=== PATIENT | male | born 2000 | race Caucasian/White ===

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

== ENCOUNTER 2021-10-08 21:30 | Emergency (ER) | payer OTHER ==
--- OUTSIDE RECORDS SUMMARY | 2021-10-08 21:33 | XMS REPORT | Continuity of Care Document ---
:2000 Author Organization [facility] t Address [address] [place] [address] Care Team Providers Name Role Phone Lillian OLVERA Primary Care Physician Unavailable Uday CRESPO R Attending Clinician DAISY RIVERO Attending Clinician Unavailable Louie TIAN Attending Clinician Gerry MARTIN Attending Clinician Unavailable Visit, Nurse Attending Clinician Unavailable Bryson JUDGE C Attending Clinician ANU Attending Clinician Unavailable LORETO CENTENO Admitting Clinician Unavailable Payers Payer Name Policy Type Policy Number Effective Date Expiration Date [facility] MEDICAID STAR [id number] 2019 00:00:00 Problems Condition Condition Condition Status Onset Resolution Last Treating Co mments Source Name Details Category Date Date Treatment Clinician Date Gonorrhea Gonorrhea Disease Active Uni vers 5[facility]05 ity of 00:00: [address] Chlamydia Chlamydia Disease Active Uni vers 5-05 ity of 00:00: [address] STD (male) STD (male) Disease Active U nivers 4-05 ity of 00:00: [address] Allergies, Adverse Reactions, Alerts Allergy Allergy Status Severity Reaction(s) Onset Inactive Treating Comm ents Source Name Type Date Date Clinician NO KNOWN Drug Active Univers ALLERGIE Class ity of S [place] [facility] Social History Social Habit Start Date Stop Date Quantity Comments Source Exposure to Not sure [facility] SARS-CoV-2 (event) Alcohol intake 2020-09-29 2020-09-29 Ex-drinker [facility] 00:00:00 00:00:00 (finding) [facility] Tobacco use and 2020-08-29 2020-08-29 Never used Universit y of exposure 00:00:00 00:00:00 [facility] Sex Assigned At [birth year] [facility] 00:00:00 00:00:00 Smoking Status Start Date Stop Date Source Unknown if ever smoked [facility] Never smoker [facility] Medications Ordered Filled Start Stop Current Ordering Indication Dosage Frequency Signature Comments Components Source Medication Medication Date Date Medication? Clinician (SIG) Name Name cefTRIAXone 2020- No Gonorrhea 250mg Univers (ROCEPHIN) 09-29 ity of injection 15:30: 03:29 [place] 250 mg 00 :00 [facility] cefTRIAXone 2020- No Gonorrhea 250mg Univers (ROCEPHIN) 09-29 ity of injection 15:30: 03:29 [place] 250 mg 00 :00 [facility] cefTRIAXone 2020- No Gonorrhea 500mg Univers (ROCEPHIN) 09-29 ity of injection 05:00: 14:30 [place] 500 mg 00 :00 [facility] cefTRIAXone 2020- No [id number] 500mg 500 mg, Univers (ROCEPHIN) 09-29 Intramuscu it y of injection 05:00: 14:30 [place] 500 [place] 00 :00 1 dose, Medical Daja 09/29/20 Branch at 0000, VALENTE
Re ason for Anti-Infec tive: Documented Infection< br>Documen becka Infection Site: Other
O ther site: genitourin juan c
Duration of Therapy: Other (see Comments) No known No Univers medications 09-27 ity of 08:43: [address] Vital Signs Vital Name Observation Time Observation Value Comments Source Systolic blood 2020-09-29 13:55:00 139 mm[Hg] Univer sity of pressure [facility] Diastolic blood 2020-09-29 13:55:00 89 mm[Hg] Unive rsity of [facility] Heart rate 2020-09-29 13:55:00 85 /min [facility] Body temperature 2020-09-29 13:55:00 36.78 [facility] Respiratory rate 2020-09-29 13:55:00 16 /min [facility] Body height 2020-09-29 13:55:00 190.5 cm Universi ty [facility] Body weight 2020-09-29 13:55:00 64.553 kg Universi [facility] BMI 2020-09-29 13:55:00 17.79 kg/m2 [facility] Procedures This patient has no known procedures. Plan of Care Planned Activity Planned Date Details Comments Source Future Scheduled 2021-01-25 INFLUENZA VACCINE [facility] [place] Test 00:00:00 (Season Ended) [code = Medic al Branch INFLUENZA VACCINE (Season Ended)] Future Scheduled 2019-11-19 Hepatitis C screening [facility] [place] Test 00:00:00 (procedure) [code = Medical Branch [id number]] Future Scheduled 2017 MENINGOCOCCAL VACCINE [facility] [place] Test 00:00:00 (1 - 2-dose series) Medical Branch [code = MENINGOCOCCAL VACCINE (1 - 2-dose series)] Future Scheduled 2017 SARS-CoV-2 (COVID-19) [facility] [place] Test 00:00:00 Vaccine (1) [code = Medical Branch SARS-CoV-2 (COVID-19) Vaccine (1)] Future Scheduled 2013 Depression screening [facility] [place] Test 00:00:00 (procedure) [code = Medical Branch [id number]] Future Scheduled 2013 Well child visit [facility] [place] Test 00:00:00 (procedure) [code = Medical Branch [id number]] Future Scheduled 2012 HPV VACCINES (1 - Male [facility] [place] Test 00:00:00 2-dose series) [code = Medic al Branch HPV VACCINES (1 - Male 2-dose series)] Future Scheduled 2011-11-19 MENINGOCOCCAL B [facility] [place] Test 00:00:00 VACCINES (1 of 2 - Medical B ranch Risk Bexsero 2-dose series) [code = MENINGOCOCCAL B VACCINES (1 of 2 - Risk Bexsero 2-dose series)] Future Scheduled 2008 DTaP,Tdap,and Td [facility] [place] Test 00:00:00 Vaccines (1 - Tdap) Medical Branch [code = DTaP,Tdap,and Td Vaccines (1 - Tdap)] Future Scheduled 2002 HEPATITIS A VACCINES [facility] [place] Test 00:00:00 (1 of 2 - 2-dose [facility] series) [code = HEPATITIS A VACCINES (1 of 2 - 2-dose series)] Future Scheduled 2002 MMR VACCINES (1 of 2 - [facility] [place] Test 00:00:00 Standard series) [code Medic al Branch = MMR VACCINES (1 of 2 - Standard series)] Future Scheduled 2002 VARICELLA VACCINES (1 [facility] [place] Test 00:00:00 of 2 - 2-dose [facility] Branch childhood series) [code = VARICELLA VACCINES (1 of 2 - 2-dose childhood series)] Future Scheduled 2001 HEPATITIS B VACCINES [facility] [place] Test 00:00:00 (1 of 3 - 3-dose [facility] primary series) [code = HEPATITIS B VACCINES (1 of 3 - 3-dose primary series)] Encounters Start End Encounter Admission Attending Care Care Encounter Source Date/Time Date/Time Type Type Clinicians Facility Department ID 2020-10-17 Outpatient [facility] [id number] [place] 14:25:16 Health 2020-10-17 Outpatient [facility] [id number] [place] 14:23:46 Health 2019-01-31 Inpatient [facility] JESSICA [id number] [facility] H 14:48:00 2021-06-21 2021-06-21 Outpatient [facility] [id number] Univers 08:30:00 08:30:00 [id number] ity of [place] [facility] 2021-06-19 2021-06-19 Telephone DEVYN Frye [id number] Univers 00:00:00 00:00:00 Maximino Sebastian [employer] [id number] ity [facility] [id number] Shawn as MATERNAL [id number] Med ical & CHILD [address] [place] [address] 2020-10-17 2020-10-18 Emergency E LAGISETTY, [facility] [id number] [facility] 15:00:00 01:21:00 MONE 2020-10-17 2020-10-17 Office JESUS Palma 6400 [id number] [place] 13:58:59 14:28:[address] [id number] Health [id number] 2020-10-11 2020-10-11 Telephone Leny Garrett UTP [id number] [place] 00:00:00 00:00:00 Leny Garrett TRAUMA [id number] Health CLINIC [id number] 2020-08-29 2020-08-29 Office JOSE C Massey [id number] 13:00:56 14:10:39 Visit Katie Minor [employer] [id number] [facility] [id number] MATERNAL [id number] & CHILD 107 [facility] 2020-02-05 2020-02-07 Outpatient IAIN BRENNAN MED [id number] [facility] 20:25:00 13:00:00 DREW 2019-02-24 2019-02-24 Emergency E [facility] [id number] [facility] 21:16:00 21:16:00 2019-02-20 2019-02-20 Outpatient E [facility] [id number] [facility] 11:17:00 11:17:00 2019-01-31 2019-01-31 Outpatient [facility] JESSICA [id number] [facility] 14:48:00 14:48:00 Results This patient has no known results.
[2021-10-08] MEDS ORDERED: TETANUS & DIPHTHERIA TOX,ADULT 0.5 ML VIAL ONE (22:36)
[2021-10-08] MEDS ORDERED: CEFAZOLIN SODIUM 1 GM/VIAL ONE (22:36)
[2021-10-08] MEDS ORDERED: ACETAMINOPHEN 500 MG TAB ONE (22:36)
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
[2021-10-09 01:03] VITALS: TEMP 98.6; O2SAT 100
[2021-10-09 01:05] VITALS: BP 118/76
--- NOTE | 2021-10-09 14:06 | RAD REPORT ---
EXAM DESCRIPTION: RAD - Ankle Left 3 View - 10/08/2021 11:14 pm CLINICAL HISTORY: 20 years Male, injury COMPARISON: None. FINDINGS/IMPRESSION: No fracture or dislocation. Bone mineralization is normal. Joint spaces are preserved. Posterior ankle laceration and associated swelling. No joint effusion. Electronically signed by: Brian Ewing DO 10/08/2021 11:34 PM CDT Due to temporary technical issues with the PACS/Fluency reporting system, reports are being signed by the in house radiologist without review as a courtesy to ensure prompt reporting. The interpreting r adiologist is fully responsible for the content of the report.
--- NOTE | 2021-10-09 14:45 | RAD REPORT ---
EXAM DESCRIPTION: RAD - Foot Left 3 View - 10/08/2021 11:14 pm CLINICAL HISTORY: 20 years Male, injury COMPARISON: None. FINDINGS/IMPRESSION: No fracture or dislocation. Bone mineralization is normal. Joint spaces are preserved. Posterior ankle laceration and associated swelling. No joint effusion. Electronically signed by: Brian Ewing DO 10/08/2021 11:34 PM CDT Due to temporary technical issues with the PACS/Fluency reporting system, reports are being signed by the in house radiologist without review as a courtesy to ensure prompt reporting. The interpreting r adiologist is fully responsible for the content of the report.
== END 2021-10-09 00:57 | disposition home or self-care (01) ==
LOC: ER 21:30
DX: S91.012A Laceration without foreign body, left ankle, initial encounter (principal); V19.9XXA Pedal cyclist (driver) (passenger) injured in unspecified traffic accident, initial encounter; Y93.89 Activity, other specified; Y92.9 Unspecified place or not applicable; Z23 Encounter for immunization
CPT/HCPCS: 73630; 73610; J0690; 90714; 96372; 99283

== ENCOUNTER 2021-10-30 21:24 | Emergency (ER) | payer OTHER ==
--- OUTSIDE RECORDS SUMMARY | 2021-10-30 21:27 | XMS REPORT | Continuity of Care Document ---
:2000 Author Organization [facility] t Address [address] [place] [address] Care Team Providers Name Role Phone Lillian OLVERA Primary Care Physician Unavailable Uday CRESPO R Attending Clinician DAISY RIVERO Attending Clinician Unavailable Louie TIAN Attending Clinician Gerry MARTIN Attending Clinician Unavailable Visit, Nurse Attending Clinician Unavailable Iván Blackwell Attending Clinician ANU Attending Clinician Unavailable LORETO CENTENO Admitting Clinician Unavailable Payers Payer Name Policy Type Policy Number Effective Date Expiration Date [facility] MEDICAID STAR [id number] 2019 00:00:00 Problems Condition Condition Condition Status Onset Resolution Last Treating Co mments Source Name Details Category Date Date Treatment Clinician Date Gonorrhea Gonorrhea Disease Active Uni vers 5[facility]05 ity of 00:00: [address] Chlamydia Chlamydia Disease Active Uni vers 5[facility]05 ity of 00:00: [address] STD (male) STD (male) Disease Active U nivers 4-05 ity of 00:00: [address] Allergies, Adverse Reactions, Alerts Allergy Allergy Status Severity Reaction(s) Onset Inactive Treating Comm ents Source Name Type Date Date Clinician NO KNOWN Drug Active Univers ALLERGIE Class ity of [facility] Social History Social Habit Start Date Stop Date Quantity Comments Source Exposure to Not sure [facility] SARS-CoV-2 (event) Alcohol intake 2020-09-29 2020-09-29 Ex-drinker [facility] 00:00:00 00:00:00 (finding) [facility] Tobacco use and 2020-08-29 2020-08-29 Never used Universit y of exposure 00:00:00 00:00:00 [facility] Sex Assigned At [birth year] [facility] 00:00:00 00:00:00 Smoking Status Start Date Stop Date Source Unknown if ever smoked [facility] Never smoker [facility] Medications Ordered Filled Start Stop Current Ordering Indication Dosage Frequency Signature Comments Components Source Medication Medication Date Date Medication? Clinician (SIG) Name Name cefTRIAXone 2020- No Gonorrhea 250mg Univers (ROCEPHIN) 09-29 ity of injection 15:30: 03:29 [place] 250 mg 00 :[address] [facility] cefTRIAXone 2020- No Gonorrhea 250mg Univers (ROCEPHIN) 09-29 ity of injection 15:30: 03:29 [place] 250 mg 00 :[address] [facility] cefTRIAXone 2020- No Gonorrhea 500mg Univers (ROCEPHIN) 09-29 ity of injection 05:00: 14:30 [place] 500 mg 00 :[address] [facility] cefTRIAXone 2020- No [id number] 500mg 500 mg, Univers (ROCEPHIN) 09-29 Intramuscu it y of injection 05:00: 14:30 [place], [place] 500 [place] 00 :00 1 dose, Medical Daja 09/29/20 Branch at 0000, VALENTE
Re ason for Anti-Infec tive: Documented Infection< br>Documen becka Infection Site: Other
O ther site: genitourin juan c
Duration of Therapy: Other (see Comments) No known No Univers medications 09-27 ity of 08:43: [address] Vital Signs Vital Name Observation Time Observation Value Comments Source Systolic blood 2020-09-29 13:55:00 139 mm[Hg] Univer sity of pressure [facility] Diastolic blood 2020-09-29 13:55:00 89 mm[Hg] Unive rsity of pressure [facility] Heart rate 2020-09-29 13:55:00 85 /min Universi [facility] Body temperature 2020-09-29 13:55:00 36.78 [facility] rate 2020-09-29 13:55:00 16 /min [facility] Body height 2020-09-29 13:55:00 190.5 cm Universi [facility] Body weight 2020-09-29 13:55:00 [facility] BMI 2020-09-29 13:55:00 17.79 kg/m2 [facility] Procedures This patient has no known procedures. Plan of Care Planned Activity Planned Date Details Comments Source Future Scheduled 2021-01-25 INFLUENZA VACCINE [facility] [place] [facility] 00:00:00 (Season Ended) [code = Medic al Branch INFLUENZA VACCINE (Season Ended)] Future Scheduled 2019-11-19 Hepatitis C screening [facility] [place] Test 00:00:00 (procedure) [code = Medical Branch [id number]] Future Scheduled 2017 MENINGOCOCCAL VACCINE [facility] [place] Test 00:00:00 (1 - 2-dose series) Medical Branch [code = MENINGOCOCCAL VACCINE (1 - 2-dose series)] Future Scheduled 2017 SARS-CoV-2 (COVID-19) [facility] [place] [facility] 00:00:00 Vaccine (1) [code = Medical Branch SARS-CoV-2 (COVID-19) Vaccine (1)] Future Scheduled 2013 Depression screening [facility] [place] Test 00:00:00 (procedure) [code = Medical Branch [id number]] Future Scheduled 2013 Well child visit [facility] [place] Test 00:00:00 (procedure) [code = Medical Branch [id number]] Future Scheduled 2012 HPV VACCINES (1 - Male [facility] [place] Test 00:00:00 2-dose series) [code = Medic al Branch HPV VACCINES (1 - Male 2-dose series)] Future Scheduled 2011-11-19 MENINGOCOCCAL B [facility] [place] Test 00:00:00 VACCINES (1 of 2 - Medical B ranch Risk Bexsero 2-dose series) [code = MENINGOCOCCAL B VACCINES (1 of 2 - Risk Bexsero 2-dose series)] Future Scheduled 2008 DTaP,Tdap,and Td [facility] [place] Test 00:00:00 Vaccines (1 - Tdap) Medical Branch [code = DTaP,Tdap,and Td Vaccines (1 - Tdap)] Future Scheduled 2002 HEPATITIS A VACCINES [facility] [place] Test 00:00:00 (1 of 2 - 2-dose Medical [facility] series) [code = HEPATITIS A VACCINES (1 of 2 - 2-dose series)] Future Scheduled 2002 MMR VACCINES (1 of 2 - [facility] [place] Test 00:00:00 Standard series) [code Medic al Branch = MMR VACCINES (1 of 2 - Standard series)] Future Scheduled 2002 VARICELLA VACCINES (1 [facility] [place] Test 00:00:00 of 2 - 2-dose Medical Branch childhood series) [code = VARICELLA VACCINES (1 of 2 - 2-dose childhood series)] Future Scheduled 2001 HEPATITIS B VACCINES [facility] [place] Test 00:00:00 (1 of 3 - 3-dose Medical [facility] primary series) [code = HEPATITIS B VACCINES (1 of 3 - 3-dose primary series)] Encounters Start End Encounter Admission Attending Care Care Encounter Source Date/Time Date/Time Type Type Clinicians Facility Department ID 2020-10-17 Outpatient [facility] [id number] [place] 14:25:16 Health 2020-10-17 Outpatient [facility] [id number] [place] 14:23:46 Health 2019-01-31 Inpatient [facility] [id number] [facility] H 14:48:00 2021-06-21 2021-06-21 Outpatient [facility] [id number] Univers 08:30:00 08:30:00 [id number] ity of [facility] 2021-06-19 2021-06-19 Telephone DEVYN Frye [id number] [facility] 00:00:00 00:00:00 Maximino Sebastian ADMINISTRATION DEAN [id number] ity [facility] [id number] Shawn as MATERNAL [id number] Med ical & CHILD [address] [place] [address] 2020-10-17 2020-10-18 Emergency E MAT, [facility] [id number] [facility] 15:00:00 01:21:00 MONE 2020-10-17 2020-10-17 Office JESUS Palma 6400 [id number] [place] 13:58:59 14:28:[address] [id number] [facility] [id number] 2020-10-11 2020-10-11 Telephone Leny Garrett [facility] [id number] [place] 00:00:00 00:00:00 Leny Garrett TRAUMA [id number] Health CLINIC [id number] 2020-08-29 2020-08-29 Office Bryson [facility] [id number] 13:00:56 14:10:39 Visit Katie Minor ADMINISTRATION DEAN [id number] [facility] [id number] MATERNAL [id number] & CHILD 107 [facility] 2020-02-05 2020-02-07 Outpatient IAIN BRENNAN MED [id number] [facility] 20:25:00 13:00:00 DREW 2019-02-24 2019-02-24 Emergency E [facility] [id number] [facility] 21:16:00 21:16:00 2019-02-20 2019-02-20 Outpatient E [facility] [id number] [facility] 11:17:00 11:17:00 2019-01-31 2019-01-31 Outpatient [facility] JESSICA [id number] [facility] 14:48:00 14:48:00 Results This patient has no known results.
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
[2021-10-30 23:28] VITALS: BP 124/76; TEMP 98.1; O2SAT 100
== END 2021-10-30 22:26 | disposition left against medical advice (07) ==
LOC: ER 21:24
DX: Z53.21 Procedure and treatment not carried out due to patient leaving prior to being seen by health care provider (principal)
CPT/HCPCS: 99282

== ENCOUNTER → 2023-06-21 | Emergency (ER) | payer OTHER, SELFPAY ==
[~2023-06-21] MED LIST: METHADONE HCL 10 MG TAB PO ONE; NA CHLORIDE 0.9% 1,000 ML ONE; ONDANSETRON 4 MG/2 ML VIAL ONE; PROMETHAZINE 25 MG TABLET ONE; cloNIDine HCL 0.1 MG TAB ONE
[2023-06-21 16:53] LABS: Hematocrit 35.2 % (39.6-49.0); MCV 86.6 fL (80-100); MPV 6.9 fL (7.6-11.3); Platelets 276 thou/uL (152-406); RBC Red Blood Cell Count 4.06 M/uL (4.33-5.43)
[2023-06-21 16:58] LABS: Potassium 3.4 mEq/L (3.5-5.1)
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
[2023-06-21 19:33] VITALS: BP 119/67; TEMP 98.6; O2SAT 98
== END ==
LOC: ER 16:21
DX: F11.23 Opioid dependence with withdrawal (principal); Z79.891 Long term (current) use of opiate analgesic
CPT/HCPCS: 36415; 80048; 85027; J2405; J7030; Q0169